=== PATIENT | female | born 1940 | race Asian ===

== ENCOUNTER → 2021-09-26 | Outpatient (CLI) | payer MEDICARE, OTHER ==
[~2021-09-26] MED LIST: ASCO500 PO; ASPI-1522 PO; ATOR20TA86 PO; BUME1TAB34 PO; CHOL200035 PO; CYAN1TAB44 PO; DOCU-350 PO; FERR-89 PO; GABA-1181 PO; HYDR-4723 PO; INSNOV SQ; ISOS30TA92 PO; METO50 PO; MULT-248 PO; NITR0.4T52 BU; OMEP20 PO; VANC1IV IV; [UNRECOGNIZED DRUG - CODE] SQ; [UNRECOGNIZED DRUG - OTHER] PO
== END | disposition home or self-care (01) ==
LOC: RADMN 14:36
PROVIDERS: ATTEND Podiatrist Foot & Ankle Surgery
DX: T14.8XXA Other injury of unspecified body region, initial encounter (principal); M19.072 Primary osteoarthritis, left ankle and foot; M85.872 Other specified disorders of bone density and structure, left ankle and foot; M25.475 Effusion, left foot; I70.8 Atherosclerosis of other arteries; M19.071 Primary osteoarthritis, right ankle and foot; M77.41 Metatarsalgia, right foot; M25.474 Effusion, right foot; M77.31 Calcaneal spur, right foot; X58.XXXA Exposure to other specified factors, initial encounter; Y93.89 Activity, other specified; Y92.89 Other specified places as the place of occurrence of the external cause; Y99.8 Other external cause status